=== PATIENT | male | born 1960 | race Caucasian/White ===

== ENCOUNTER 2019-07-14 08:59 | Outpatient (NON) | payer BC, SELFPAY | END 2020-03-01 07:39 | disposition home or self-care (01) | PROVIDERS: PCP Internal Medicine; Visit Provider Specialist | DX: L72.11 Pilar cyst (principal); L90.5 Scar conditions and fibrosis of skin | CPT/HCPCS: 88304; 88305 ==

== ENCOUNTER 2023-01-12 01:08 | Day surgery (SDC) | payer BC, SELFPAY ==
[2022-12-25 15:40] VITALS: BMI 36.3
[2023-01-12 06:18] VITALS: BP 136/88; PULSE 77; RESP 20; TEMP 35.9; O2SAT 100
[2023-01-12] MEDS: LACTATED RINGERS 1,000 ML 150 ML IV CONT (06:27)
--- NOTE | 2023-01-12 07:21 | WPDANESEPPF ---
Anes - Initial Pre Proc Eval Procedure: Operation Date: 01/12/23 07:30 Proposed Procedures p Colonoscopy - Mateusz Zimmerman MD Date/Time: 01/12/23 07:21 Surgeon: Mateusz Zimmerman MD Pre Op Diagnosis: Positive cologuard Patient Data Age: 62 Gender: M Height: 1.8 m Weight: 114.9 kg Last Vital Signs Temp 96.7 F L 01/12/23 06:18 Pulse 77 01/12/23 06:18 Resp 20 01/12/23 06:18 BP 136/88 01/12/23 06:18 Pulse Ox 100 01/12/23 06:18 O2 Del Method Room Air 01/12/23 06:18 Allergies Allergy/AdvReac Type Severity Reaction Status Date / Time No Known Allergies Allergy Unknown Uncoded 01/12/23 06:17 Home Medications Medication Instructions Recorded Confirmed Type fenofibrate nanocrystallized 145 145 mg PO DAILY #90 tabs 11/07/22 12/25/22 Rx mg tablet finasteride 1 mg tablet 1 mg PO DAILY #90 tabs 11/07/22 12/25/22 Rx sertraline 50 mg tablet (Zoloft) 50 mg PO DAILY #90 tabs 11/07/22 12/25/22 Rx tadalafil 20 mg tablet (Cialis) 20 mg PO DAILY PRN sexual activity 11/07/22 12/25/22 Rx #30 tabs tamsulosin 0.4 mg capsule (Flomax) 0.4 mg PO DAILY #90 caps 11/07/22 12/25/22 Rx testosterone cypionate 200 mg/mL 200 mg IM .q2wks #2 mL 11/07/22 12/25/22 Rx intramuscular oil sodium,potassium,mag sulfates 17.5 See Rx Instructions PO .COMPLEX 12/04/22 12/25/22 Rx gram-3.13 gram-1.6 gram oral soln #354 mL (Suprep Bowel Prep Kit) Patient hx anesthesia problems: none Family hx anesthesia problems: none Results Review: All pre-operative results and documents have been reviewed as part of the pre-operative evaluation. [facility] Past Medical History Medical History (Updated 11/07/22 @ 09:09 by Britney Manjarrez PA-C) Alopecia Anxiety Arthritis Depression Elevated blood pressure reading without diagnosis of hypertension Erectile dysfunction Hypertriglyceridemia Low testosterone Surgical History Surgical History (Updated 11/07/22 @ 09:00 by Britney Manjarrez PA-C) History of appendectomy 1977 Family History Family History Grandparent Family history of malignant neoplasm Social History Social History (Updated 11/07/22 @ 08:25 by Ashlee Mccarthy) Smoking status: Never smoker Alcohol intake: never Alcohol use details: rare Substance use: never Substance use type: does not use Lack of Transportation: No Lack of Food: Never True Current Housing: I Have Housing Concerned About Future Housing: No Difficulty Paying Gas/Electric Bills: No Difficulty Paying for Meds: No Currently Unemployed: No Difficulty w/ Childcare or Family Care: No Living arrangements: with family Occupation/Education: occupation Gender identity (if verbalized by the patient): Male Sexual Orientation (if Verbalized by the Patient): Straight or Heterosexual Spiritual care concerns: No Anes - Eval Final PreProcedure Day of Procedure 01/12/23 07:21 Patient weight: obese Heart: regular rate and rhythm Lungs: clear to auscultation Airway: Mallampati scale class II Neurological: alert and oriented Last oral intake: >/= 8 hours ASA classification: III Emergent: no Anesthetic plan: proceed Anesthesia type and monitoring: general GIVS and standard monitoring Results Review: All pre-operative results and documents have been reviewed as part of the pre-operative evaluation. Informed Consent: The patient's anesthetic plan and its attendant risks and benefits were discussed with the patient/family/POA. Questions were solicited and answers provided to the satisfaction of the patient/family/POA.
--- NOTE | 2023-01-12 07:49 | PM.HPGS ---
History of Present Illness History of Present Illness Consent: Risks, benefits, and alternatives have been discussed and questions answered. Patient agrees to proceed with procedure. Chief complaint: Positive cologuard Narrative: Montez Young is a 62 year old male Presents for screening colonoscopy. Patient's current weight appetite and bowel movements are normal. Patient denies abdominal pain. He has had no bleeding. Family history noncontributory. Recent Cologuard test was found to be positive. Review of Systems Review of Systems: Review of systems noncontributory. [facility] Past Medical History Medical History (Updated 01/12/23 @ 07:50 by Mateusz Zimmerman MD) Alopecia Anxiety Arthritis Depression Elevated blood pressure reading without diagnosis of hypertension Erectile dysfunction Hypertriglyceridemia Low testosterone Surgical History Surgical History (Updated 11/07/22 @ 09:00 by Britney Manjarrez PA-C) History of appendectomy 1976 Family History Family History Grandparent Family history of malignant neoplasm Social History Social History (Updated 11/07/22 @ 08:25 by Ashlee Mccarthy) Smoking status: Never smoker Alcohol intake: never Alcohol use details: rare Substance use: never Substance use type: does not use Lack of Transportation: No Lack of Food: Never True Current Housing: I Have Housing Concerned About Future Housing: No Difficulty Paying Gas/Electric Bills: No Difficulty Paying for Meds: No Currently Unemployed: No Difficulty w/ Childcare or Family Care: No Living arrangements: with family Occupation/Education: occupation Gender identity (if verbalized by the patient): Male Sexual Orientation (if Verbalized by the Patient): Straight or Heterosexual Spiritual care concerns: No Meds Home Medications and Allergies Home Medications Medication Instructions Recorded Confirmed Type fenofibrate nanocrystallized 145 145 mg PO DAILY #90 tabs 11/07/22 12/25/22 Rx mg tablet finasteride 1 mg tablet 1 mg PO DAILY #90 tabs 11/07/22 12/25/22 Rx sertraline 50 mg tablet (Zoloft) 50 mg PO DAILY #90 tabs 11/07/22 12/25/22 Rx tadalafil 20 mg tablet (Cialis) 20 mg PO DAILY PRN sexual activity 11/07/22 12/25/22 Rx #30 tabs tamsulosin 0.4 mg capsule (Flomax) 0.4 mg PO DAILY #90 caps 11/07/22 12/25/22 Rx testosterone cypionate 200 mg/mL 200 mg IM .q2wks #2 mL 11/07/22 12/25/22 Rx intramuscular oil sodium,potassium,mag sulfates 17.5 See Rx Instructions PO .COMPLEX 12/04/22 12/25/22 Rx gram-3.13 gram-1.6 gram oral soln #354 mL (Suprep Bowel Prep Kit) Allergies Allergy/AdvReac Type Severity Reaction Status Date / Time No Known Allergies Allergy Unknown Uncoded 01/12/23 06:17 Vital Signs Vital Signs - 24 hr 01/12/23 06:18 Temperature 96.7 F L Pulse Rate 77 Respiratory Rate 20 Blood Pressure 136/88 Pulse Oximetry 100 Oxygen Delivery Room Air Exam Narrative: Physical exam reveals patient to be alert. Vital signs stable. HEENT exam is unremarkable. Patient is anicteric. Lungs are clear to auscultation and percussion. Heart is without murmur or extra sounds. Abdomen bowel sounds are present soft nontender with no organomegaly. Digital external rectal exam is normal. Assessment and Plan Assessment and plan (1) Positive colorectal cancer screening using Cologuard test: Code(s): R19.5 - Other fecal abnormalities Status: Acute Assessment and Plan: Patient found to have a positive Cologuard test. For this reason presents for screening colonoscopy today.
[2023-01-12 07:52] VITALS: BP 131/82; PULSE 93; RESP 25; O2SAT 99
[2023-01-12 08:02] VITALS: BP 133/93; PULSE 84; RESP 22; O2SAT 99
[2023-01-12 08:12] VITALS: BP 140/92; PULSE 74; RESP 21; O2SAT 98
== END 2023-01-12 08:20 | disposition home or self-care (01) ==
PROVIDERS: PCP Physician Assistant Medical; Visit Provider Internal Medicine Gastroenterology
PROC: 0DJD8ZZ Inspection of Lower Intestinal Tract, Via Natural or Artificial Opening Endoscopic (ICD-10-PCS; CPT 45378; principal; 2023-01-12 07:30)
DX: R19.5 Other fecal abnormalities (principal); D12.3 Benign neoplasm of transverse colon; D12.8 Benign neoplasm of rectum; K64.8 Other hemorrhoids; K64.4 Residual hemorrhoidal skin tags
CPT/HCPCS: 45385; 88305; J2704; J7120

== ENCOUNTER 2023-08-04 01:12 | Day surgery (SDC) | payer BC, SELFPAY ==
[2023-07-21 09:55] VITALS: BMI 36.0
--- NOTE | 2023-07-31 13:46 | SUR.PREOP ---
Patient called regarding upcoming procedure. Message left on patient's voicemail regarding preop instructions, appointment times, and procedure prep.
[2023-08-04 06:26] VITALS: BP 161/94; PULSE 83; RESP 17; TEMP 35.9; O2SAT 97; BMI 35.8
[2023-08-04] MEDS: LACTATED RINGERS 1,000 ML 150 ML IV CONT (06:35)
--- NOTE | 2023-08-04 07:25 | WPDANESEPPF ---
Anes - Initial Pre Proc Eval Procedure: Operation Date: 08/04/23 07:30 Proposed Procedures p Esophagogastroduodenoscopy - Mateusz Zimmerman MD Date/Time: 08/04/23 07:25 Surgeon: Mateusz Zimmerman MD Pre Op Diagnosis: Dysphagia, unspecified Patient Data Age: 63 Gender: M Height: 1.8 m Weight: 116.6 kg Last Vital Signs Temp 96.6 F L 08/04/23 06:26 Pulse 83 08/04/23 06:26 Resp 17 08/04/23 06:26 BP 161/94 H 08/04/23 06:26 Pulse Ox 97 08/04/23 06:26 O2 Del Method Room Air 08/04/23 06:26 Allergies Allergy/AdvReac Type Severity Reaction Status Date / Time No Known Allergies Allergy Unknown Uncoded 08/04/23 06:24 Home Medications Medication Instructions Recorded Confirmed Type sertraline 50 mg tablet (Zoloft) 50 mg PO DAILY #90 tabs 11/07/22 08/04/23 Rx tamsulosin 0.4 mg capsule (Flomax) 0.4 mg PO DAILY #90 caps 11/07/22 08/04/23 Rx testosterone cypionate 200 mg/mL 200 mg IM .q2wks #2 mL 11/07/22 08/04/23 Rx intramuscular oil fenofibrate nanocrystallized 145 See Rx Instructions .Route 06/15/23 08/04/23 Rx mg tablet .COMPLEX #90 tabs tadalafil 20 mg tablet (Cialis) 20 mg PO DAILY PRN sexual activity 07/13/23 08/04/23 Rx #30 tabs pantoprazole 20 mg tablet,delayed 20 mg PO QAM #90 tabs 07/22/23 08/04/23 Rx release finasteride 1 mg tablet See Rx Instructions .Route 08/03/23 08/04/23 Rx .COMPLEX #90 tabs Patient hx anesthesia problems: none Family hx anesthesia problems: none Results Review: All pre-operative results and documents have been reviewed as part of the pre-operative evaluation. [facility] Past Medical History Medical History Alopecia Anxiety Arthritis Depression Elevated blood pressure reading without diagnosis of hypertension Erectile dysfunction Hypertriglyceridemia Low testosterone Surgical History Surgical History History of appendectomy 1977 Family History Family History Grandparent Family history of malignant neoplasm Social History Social History Smoking status: Never smoker Alcohol intake: never Alcohol use details: rare Substance use: never Substance use type: does not use Lack of Transportation: No Lack of Food: Never True Current Housing: I Have Housing Concerned About Future Housing: No Difficulty Paying Gas/Electric Bills: No Difficulty Paying for Meds: No Currently Unemployed: No Difficulty w/ Childcare or Family Care: No Living arrangements: with family Occupation/Education: occupation Gender identity (if verbalized by the patient): Male Sexual Orientation (if Verbalized by the Patient): Straight or Heterosexual Spiritual care concerns: No Anes - Eval Final PreProcedure Day of Procedure 08/04/23 07:25 Patient weight: obese Heart: regular rate and rhythm Lungs: clear to auscultation Airway: Mallampati scale class II Neurological: alert and oriented Last oral intake: >/= 8 hours ASA classification: III Emergent: no Anesthetic plan: proceed Anesthesia type and monitoring: general GIVS and standard monitoring Results Review: All pre-operative results and documents have been reviewed as part of the pre-operative evaluation. Informed Consent: The patient's anesthetic plan and its attendant risks and benefits were discussed with the patient/family/POA. Questions were solicited and answers provided to the satisfaction of the patient/family/POA.
--- NOTE | 2023-08-04 07:34 | PM.HPGS ---
History of Present Illness History of Present Illness Consent: Risks, benefits, and alternatives have been discussed and questions answered. Patient agrees to proceed with procedure. Chief complaint: Dysphagia Narrative: Montez Young is a 63 year old male Presents for EGD. Patient reports over the last year he has noticed food catching in mid substernal portion the chest. He is coughing more frequently. Occasionally take some time for food to pass. He denies any specific heartburn. He has had no bleeding or weight loss. Patient presents today for EGD. Recent colonoscopy revealed several colon polyps earlier this year. He has had no colon issues. Review of Systems Review of Systems: Review of systems noncontributory. [facility] Past Medical History Medical History Alopecia Anxiety Arthritis Depression Elevated blood pressure reading without diagnosis of hypertension Erectile dysfunction Hypertriglyceridemia Low testosterone Surgical History Surgical History History of appendectomy 1977 Family History Family History Grandparent Family history of malignant neoplasm Social History Social History Smoking status: Never smoker Alcohol intake: never Alcohol use details: rare Substance use: never Substance use type: does not use Lack of Transportation: No Lack of Food: Never True Current Housing: I Have Housing Concerned About Future Housing: No Difficulty Paying Gas/Electric Bills: No Difficulty Paying for Meds: No Currently Unemployed: No Difficulty w/ Childcare or Family Care: No Living arrangements: with family Occupation/Education: occupation Gender identity (if verbalized by the patient): Male Sexual Orientation (if Verbalized by the Patient): Straight or Heterosexual Spiritual care concerns: No Meds Home Medications and Allergies Home Medications Medication Instructions Recorded Confirmed Type sertraline 50 mg tablet (Zoloft) 50 mg PO DAILY #90 tabs 11/07/22 08/04/23 Rx tamsulosin 0.4 mg capsule (Flomax) 0.4 mg PO DAILY #90 caps 11/07/22 08/04/23 Rx testosterone cypionate 200 mg/mL 200 mg IM .q2wks #2 mL 11/07/22 08/04/23 Rx intramuscular oil fenofibrate nanocrystallized 145 See Rx Instructions .Route 06/15/23 08/04/23 Rx mg tablet .COMPLEX #90 tabs tadalafil 20 mg tablet (Cialis) 20 mg PO DAILY PRN sexual activity 07/13/23 08/04/23 Rx #30 tabs pantoprazole 20 mg tablet,delayed 20 mg PO QAM #90 tabs 07/22/23 08/04/23 Rx release finasteride 1 mg tablet See Rx Instructions .Route 08/03/23 08/04/23 Rx .COMPLEX #90 tabs Allergies Allergy/AdvReac Type Severity Reaction Status Date / Time No Known Allergies Allergy Unknown Uncoded 08/04/23 06:24 Vital Signs Vital Signs - 24 hr 08/04/23 06:26 Temperature 96.6 F L Pulse Rate 83 Respiratory Rate 17 Blood Pressure 161/94 H Pulse Oximetry 97 Oxygen Delivery Room Air Exam Narrative: Physical exam reveals patient to be alert. Vital signs stable. HEENT exam is unremarkable. Patient is anicteric. Lungs are clear. Heart without murmur. Abdomen bowel sounds present soft nontender with no organomegaly. Assessment and Plan Assessment and plan (1) Dysphagia: Code(s): R13.10 - Dysphagia, unspecified Status: Acute Assessment and Plan: patient with difficulty swallowing larger pieces of food such as meat. These seem to catch in mid substernal portion of the chest suggesting esophageal narrowing. Currently on trial of PPI for possible acid reflux. EGD will be performed to assess more thoroughly. Further recommendations will be given after endoscopy.
[2023-08-04 07:48] VITALS: BP 129/80; PULSE 81; RESP 19; O2SAT 98
[2023-08-04 07:58] VITALS: BP 116/82; PULSE 77; RESP 18; O2SAT 99
== END 2023-08-04 08:16 | disposition home or self-care (01) ==
PROVIDERS: PCP Physician Assistant Medical; Visit Provider Internal Medicine Gastroenterology
PROC: 0DJ08ZZ Inspection of Upper Intestinal Tract, Via Natural or Artificial Opening Endoscopic (ICD-10-PCS; CPT 43235; principal; 2023-08-04 07:30)
DX: R13.10 Dysphagia, unspecified (principal); E78.1 Pure hyperglyceridemia; F41.9 Anxiety disorder, unspecified; F32.A Depression, unspecified; Z79.890 Hormone replacement therapy; E66.9 Obesity, unspecified; Z68.35 Body mass index [BMI] 35.0-35.9, adult
CPT/HCPCS: 43450; 43235; J2704; J7120